=== PATIENT | male | born 1985 | race Hispanic/Latino ===

== ENCOUNTER → 2023-08-31 | Emergency (ER) | payer OTHER ==
[~2023-08-31] VITALS: Ht 185.4 cm; Wt 124.7 kg
[~2023-08-31] MED LIST: FLUC200T PO; HYDR12.54 PO; METF625T PO; MUPI22OI2 TP; SULF1TAB42 PO
[2023-08-31 11:46] VITALS: BP 183/115; PULSE 105; RESP 18; O2SAT 100
[2023-08-31 15:44] LABS: BASOPHILS # (AUTO) 0.02 K/uL (0.00-0.20); BASOPHILS % (AUTO) 0.2 % (0.0-5.0); EOSINOPHILS # (AUTO) 0.03 K/uL (0.00-0.70); EOSINOPHILS % (AUTO) 0.3 % (0.0-8.0); HEMATOCRIT 46.5 % (42-54); IMMATURE GRANULOCYTE ABSOLUTE 0.04 K/uL (0-1); LYMPHOCYTES % (AUTO) 22.5 % (21.0-51.0); MEAN CORPUSCULAR HEMOGLOBIN 28.8 pg (27.0-33.0); MEAN CORPUSCULAR HGB CONC 34.2 g/dL (32.0-36.0); MEAN CORPUSCULAR VOLUME 84.1 fL (79-99); MONOCYTES # (AUTO) 0.5 K/uL (0.1-1.0); MONOCYTES % (AUTO) 5.3 % (3.0-13.0); NEUTROPHILS # (AUTO) 6.4 K/uL (1.8-7.7); NEUTROPHILS % (AUTO) 71.3 % (40.0-77.0); PLATELET COUNT (AUTO) 291 K/uL (130-400); RED BLOOD CELL COUNT(AUTO) 5.53 MIL/uL (4.50-6.20); RED CELL DISTRIBUTION WIDTH 12.2 % (11.0-15.5); WHITE BLOOD COUNT (AUTO) 8.9 K/uL (4.8-10.8)
[2023-08-31 16:00] LABS: CREATININE 0.8 mg/dL (0.5-1.5); POTASSIUM 3.8 mmol/L (3.5-5.1)
[2023-08-31] MEDS: CEFAZOLIN SODIUM 1 GM VIAL IVPB ONE (16:21)
[2023-08-31] MEDS: FLUCONAZOLE 100 MG TAB PO ONE (16:21)
[2023-08-31] MEDS: 0.9%NACL 1000ML 1,000 ML IV ONE (16:22)
== END ==
LOC: EDH 11:23
DX: R73.9 Hyperglycemia, unspecified (principal); L03.032 Cellulitis of left toe; Z79.899 Other long term (current) drug therapy
CPT/HCPCS: 99284; 96365; 80048; 85025; 36415; 73630; J0690